=== PATIENT | male | born 1965 | race Caucasian/White ===

== ENCOUNTER 2017-10-21 12:01 | Emergency (ER) | payer OTHER ==
[~2017-10-21] VITALS: Ht 175.3 cm; Wt 114.2 kg
[2017-10-21] MEDS ORDERED: ONDANSETRON ODT 4 MG ONE (12:42)
[2017-10-21] MEDS ORDERED: KETOROLAC 30 MG/1 ML ONE (12:43)
[2017-10-21] MEDS ORDERED: MORPHINE SULFATE 4 MG/ML, 1ML ONE ×2 (12:43→14:30)
[2017-10-21] MEDS: MORPHINE SULFATE 4 MG/ML, 1ML IVPush PRN ×2 (12:57→14:35)
[2017-10-21] MEDS ORDERED: ONDANSETRON ODT 4 MG PO ONE (13:00)
[2017-10-21] MEDS ORDERED: KETOROLAC 30 MG/1 ML IVPush ONE (13:00)
[2017-10-21 13:24] LABS: MICROSCOPIC AUTO
[2017-10-21 13:28] LABS: CULTURE INDICATED? YES
[2017-10-21 15:15] VITALS: BP 138/93
== END 2017-10-21 15:18 | disposition home or self-care (01) ==
LOC: ED 13:00
DX: N13.2 Hydronephrosis with renal and ureteral calculous obstruction (principal); I10 Essential (primary) hypertension; Z79.899 Other long term (current) drug therapy
CPT/HCPCS: 74176; 81001; 87086; 96374; 96375; 96376; 99285; J1885; Q0162

== ENCOUNTER 2017-11-09 10:05 | Emergency (ER) | payer OTHER ==
[~2017-11-09] VITALS: Ht 175.3 cm; Wt 114.5 kg
[2017-11-09] MEDS ORDERED: ONDANSETRON ODT 4 MG PO ONE (11:30)
[2017-11-09] MEDS ORDERED: SODIUM CHLORIDE FLUSH 10ML SYR IVF ONE (11:30)
[2017-11-09] MEDS ORDERED: KETOROLAC 30 MG/1 ML IVPush ONE (11:30)
[2017-11-09 11:39] LABS: BASOPHILS # (AUTO) 0.03 x10^3/uL (0-0.1); BASOPHILS % (AUTO) 1 % (0-1); EOSINOPHILS # (AUTO) 0.03 x10^3/uL (0-0.4); EOSINOPHILS % (AUTO) 1 % (1-7); LYMPHOCYTES # (AUTO) 1.15 x10^3/uL (1-3.4); LYMPHOCYTES % (AUTO) 19 % (22-44); MD NO; MEAN CORPUSCULAR HEMOGLOBIN 30.3 pg (27.5-34.5); MEAN CORPUSCULAR VOLUME 91.7 fL (81-97); MONOCYTES # (AUTO) 0.46 x10^3/uL (0.2-0.8); MONOCYTES % (AUTO) 8 % (2-9); NEUTROPHILS # (AUTO) 4.31 x10^3/uL (1.8-6.8); NEUTROPHILS % (AUTO) 72 % (42-75); PLATELET COUNT 181 x10^3/uL (130-400); RED BLOOD COUNT 5.73 x10^6/uL (4.38-5.82); RED CELL DISTRIBUTION WIDTH 13.4 % (9.4-14.8)
[2017-11-09 11:50] LABS: ALBUMIN 4.3 g/dL (3.4-5.0); ANION GAP 7 mmol/L (5-15); CHLORIDE 104 mmol/L (98-107); CREATININE 1.08 mg/dL (0.7-1.3)
[2017-11-09] MEDS ORDERED: KETOROLAC 30 MG/1 ML ONE (11:56)
[2017-11-09] MEDS ORDERED: ONDANSETRON ODT 4 MG ONE (11:56)
[2017-11-09] MEDS ORDERED: TEST100V2 IM (12:01)
[2017-11-09 12:17] LABS: MICROSCOPIC AUTO
[2017-11-09 12:40] LABS: CULTURE INDICATED? NO
[2017-11-09 13:04] VITALS: BP 162/99
== END 2017-11-09 14:44 | disposition home or self-care (01) ==
LOC: ED 13:32
DX: N13.2 Hydronephrosis with renal and ureteral calculous obstruction (principal); R10.9 Unspecified abdominal pain; I10 Essential (primary) hypertension
CPT/HCPCS: 36415; 74018; 76770; 80048; 81001; 82040; 85025; 96374; 99285; J1885; Q0162

== ENCOUNTER 2018-06-22 01:44 | Emergency (ER) | payer OTHER ==
[~2018-06-22] VITALS: Ht 175.3 cm; Wt 110.8 kg
[~2018-06-22 01:44] MED LIST: TEST100V2 IM
[2018-06-22 03:59] VITALS: BP 177/102
== END 2018-06-22 04:01 | disposition home or self-care (01) ==
LOC: ED 01:56
DX: B34.9 Viral infection, unspecified (principal); I10 Essential (primary) hypertension
CPT/HCPCS: 71045; 93005; 99283

== ENCOUNTER 2018-10-31 18:24 | Emergency (ER) | payer OTHER ==
[~2018-10-31] VITALS: Ht 175.3 cm; Wt 114.8 kg
[2018-10-31] MEDS ORDERED: ASPIRIN 81 MG TABLET CHEW PO ONE (18:30)
[2018-10-31] MEDS ORDERED: SODIUM CHLORIDE FLUSH 10ML SYR IVF ONE (18:30)
[2018-10-31] MEDS ORDERED: ASPIRIN 81 MG TABLET CHEW ONE (18:43)
[2018-10-31] MEDS ORDERED: ADENOSINE 6 MG/2 ML ONE (18:43)
[2018-10-31] MEDS ORDERED: METOPROLOL TARTRATE 25 MG TABLET ONE (18:55)
--- NOTE | 2018-10-31 18:55 | NUR ---
ADENOSINE GIVEN WITH IMMEDIATE RATE DECREASED TO 105 FROM 167. PT TOLERATED PROCEDURE WELL.
[2018-10-31] MEDS ORDERED: METOPROLOL TARTRATE 50 MG TABLET PO ONE (19:00)
[2018-10-31] MEDS ORDERED: ADENOSINE 6 MG/2 ML IVPush ONE (19:00)
[2018-10-31] MEDS ORDERED: TORADOL PO (19:03)
[2018-10-31 19:19] LABS: BASOPHILS # (AUTO) 0.02 x10^3/uL (0-0.1); BASOPHILS % (AUTO) 1 % (0-1); EOSINOPHILS # (AUTO) 0.08 x10^3/uL (0-0.4); EOSINOPHILS % (AUTO) 2 % (1-7); LYMPHOCYTES # (AUTO) 1.35 x10^3/uL (1-3.4); LYMPHOCYTES % (AUTO) 31 % (22-44); MD NO; MEAN CORPUSCULAR HEMOGLOBIN 32.4 pg (27.5-34.5); MEAN CORPUSCULAR HGB CONC 34.7 g/dL (33.2-36.2); MEAN CORPUSCULAR VOLUME 93.3 fL (81-97); MEAN PLATELET VOLUME 9.5 fL (7.4-10.4); MONOCYTES # (AUTO) 0.83 x10^3/uL (0.2-0.8); MONOCYTES % (AUTO) 19 % (2-9); NEUTROPHILS # (AUTO) 2.11 x10^3/uL (1.8-6.8); NEUTROPHILS % (AUTO) 48 % (42-75); PLATELET COUNT 160 x10^3/uL (130-400); RED BLOOD COUNT 5.75 x10^6/uL (4.38-5.82); RED CELL DISTRIBUTION WIDTH 12.9 % (9.4-14.8)
[2018-10-31 19:29] LABS: ALBUMIN 4.3 g/dL (3.4-5.0); ANION GAP 7 mmol/L (5-15); CALCIUM 8.7 mg/dL (8.5-10.1); CHLORIDE 109 mmol/L (98-107)
[2018-10-31 19:35] LABS: CREATININE 1.21 mg/dL (0.7-1.3); TROPONIN I < 0.015 ng/mL (0.000-0.045)
--- NOTE | 2018-10-31 20:05 | NUR ---
ALL RESULTS BACK, PT FOR RECHECK.
[2018-10-31 20:16] VITALS: BP 136/101
== END 2018-10-31 20:31 | disposition home or self-care (01) ==
LOC: ED 20:25
DX: I47.1 Supraventricular tachycardia (principal); I21.A1 Myocardial infarction type 2; I10 Essential (primary) hypertension
CPT/HCPCS: 36415; 71045; 80048; 82040; 83880; 84484; 85025; 93005; 99284; J0153

== ENCOUNTER → 2019-11-07 | Outpatient (CLI) | payer OTHER ==
[~2019-11-07] MED LIST changes: +ASPI81TA45 PO; +ATOR-2 PO; +HYDROCHLOROTH12.5 MG PO; +LISI5TAB7 PO; +LOSA1TAB7 PO; +METO-93 PO; +NITR0.4T28 SL; +TICA90TA PO; +TORADOL PO
[2019-11-07 13:13] LABS: ALBUMIN 3.8 g/dL (3.4-5.0); ANION GAP 5 mmol/L (5-15); CALCIUM 9.3 mg/dL (8.5-10.1); CHLORIDE 106 mmol/L (98-107)
[2019-11-07 13:17] LABS: ALANINE AMINOTRANSFERASE 43 U/L (12-78); ALKALINE PHOSPHATASE 102 U/L (45-117); BILIRUBIN,TOTAL 0.7 mg/dL (0.2-1.0); CHOL/HDL RATIO 4.5; CHOLESTEROL, TOTAL 224 mg/dL (140-239); CREATININE 1.08 mg/dL (0.7-1.3); HDL CHOL % 22 % (26-37); HDL CHOLESTEROL (DIRECT) 50 mg/dL (40-60); TOTAL PROTEIN 7.6 g/dL (6.4-8.2); TRIGLYCERIDES 477 mg/dL (50-200)
== END | disposition home or self-care (01) ==
LOC: CFH 09:07
PROVIDERS: ATTEND Genetic Counselor, MS
DX: I10 Essential (primary) hypertension (principal)
CPT/HCPCS: 36415; 80053; 80061

== ENCOUNTER 2020-08-21 00:02 | Inpatient (IN) | payer OTHER ==
[~2020-08-21] VITALS: Ht 175.3 cm; Wt 120.0 kg
[2020-08-21] MEDS ORDERED: ASPIRIN 81 MG TABLET CHEW PO ONE (00:30)
--- NOTE | 2020-08-21 00:31 | NUR ---
PT BIB SELF VIA POV D/T CP THAT STARTED TWO DAYS AGO. PT TOOK 3 NITRO PILLS STEPHANIE BETWEEN 3P AND 7P, PT STATES THIS HELPED HIS PAIN A LITTLE BIT. PER PT RESTING RIGHT NOW HAS BROUGHT HIS PAIN FROM 4/10 TO 0/10. PT HAD 3 STENTS PUT IN APPROX 11 MONTHS AGO. PT RESTING IN [facility], MONITORING IN PLACE, NADN AT THIS TIME, EKG DONE IN TRIAGE, PER PT NO NEEDS AT THIS TIME, KELLY BRAXTON AT , [facility].
--- NOTE | 2020-08-21 00:39 | NUR ---
REPORT GIVEN TO KALE MONTES.
--- NOTE | 2020-08-21 00:40 | NUR ---
REPORT RECIEVED FROM SANJAY HENLEY
[2020-08-21] MEDS ORDERED: ASPIRIN 81 MG TABLET CHEW ONE (00:50)
[2020-08-21 00:53] LABS: BASOPHILS % (AUTO) 1 % (0-1); EOSINOPHILS % (AUTO) 2 % (1-7); LYMPHOCYTES % (AUTO) 27 % (22-44); MEAN CORPUSCULAR HEMOGLOBIN 32.5 pg (27.5-34.5); MEAN CORPUSCULAR HGB CONC 34.2 g/dL (33.2-36.2); MEAN PLATELET VOLUME 9.2 fL (7.4-10.4); MONOCYTES % (AUTO) 15 % (2-9); NEUTROPHILS % (AUTO) 55 % (42-75); PLATELET COUNT 154 x10^3/uL (130-400); RED BLOOD COUNT 4.42 x10^6/uL (4.38-5.82); RED CELL DISTRIBUTION WIDTH 13.2 % (9.4-14.8)
[2020-08-21 00:54] LABS: MD NO
[2020-08-21 00:58] LABS: ALBUMIN 3.8 g/dL (3.4-5.0); ANION GAP 10 mmol/L (5-15); CALCIUM 8.8 mg/dL (8.5-10.1); CHLORIDE 106 mmol/L (98-107); CREATININE 0.97 mg/dL (0.7-1.3)
[2020-08-21 01:01] LABS: TROPONIN I 0.052 ng/mL (0.000-0.045)
[2020-08-21] MEDS ORDERED: DOCUSATE 100 MG CAPSULE PO PRN (02:00)
[2020-08-21] MEDS ORDERED: NITROGLYCERIN 0.4 MG BOTTLE (25 TABS) SL PRN (02:00)
[2020-08-21] MEDS ORDERED: CLOP75TA PO (02:18)
--- NOTE | 2020-08-21 02:45 | NUR ---
report to edward abreu. waiting for room to be cleaned
[2020-08-21 03:48] VITALS: BP 133/91
[2020-08-21] MEDS ORDERED: LOSARTAN/HCTZ MC SCH (04:00)
[2020-08-21] MEDS ORDERED: LOSA1TAB25 PO (04:19)
[2020-08-21] MEDS: ASPIRIN 81 MG TABLET EC PO SCH (05:58)
[2020-08-21 07:20] LABS: TROPONIN I 0.165 ng/mL (0.000-0.045)
[2020-08-21 07:47] VITALS: BP 128/86
[2020-08-21] MEDS ORDERED: LISINOPRIL 5 MG TABLET PO SCH (09:00)
[2020-08-21 10:15] VITALS: BP 145/96
[2020-08-21] MEDS: METOPROLOL SUCCINATE 50 MG TAB.ER.24H PO SCH (10:17)
[2020-08-21] MEDS: LOSARTAN 100 MG TAB PO SCH (10:17)
[2020-08-21] MEDS: HYDROCHLOROTHIAZIDE 12.5 MG CAPSULE PO SCH (10:17)
[2020-08-21] MEDS: TICAGRELOR 90 MG TABLET PO SCH ×2 (10:17→10:20)
[2020-08-21] MEDS: SODIUM CHLORIDE FLUSH 10ML SYR IVF SCH ×2 (10:29→20:58)
[2020-08-21] MEDS: CLOPIDOGREL 75 MG TABLET PO SCH (10:34)
[2020-08-21] MEDS: SODIUM CHLORIDE 0.9% 1,000 ML IV SCH ×2 (11:34→22:08)
[2020-08-21] MEDS ORDERED: MIDAZOLAM 1 MG/ML, 5ML ONE (14:55)
[2020-08-21] MEDS ORDERED: LIDOCAINE-MPF 1%, 5ML ONE ×2 (14:55→16:45)
[2020-08-21] MEDS ORDERED: TICAGRELOR 90 MG TABLET ONE (14:55)
[2020-08-21] MEDS ORDERED: FENTANYL PF 100 MCG/2ML ONE (14:55)
[2020-08-21] MEDS ORDERED: BIVALIRUDIN 250 MG ONE ×2 (14:55→16:57)
[2020-08-21] MEDS ORDERED: HEPARIN 1,000 UNITS/ML, 10ML ONE (14:55)
[2020-08-21] MEDS ORDERED: VERAPAMIL 2.5 MG/ML, 2ML ONE (14:55)
[2020-08-21] MEDS ORDERED: DIPHENHYDRAMINE 50 MG/ML, 1ML ONE (16:50)
[2020-08-21] MEDS ORDERED: CLOPIDOGREL 75 MG TABLET ONE (17:27)
[2020-08-21] MEDS ORDERED: SODIUM CHLORIDE 0.9% 1,000 ML IV SCH (18:00)
[2020-08-21 20:03] VITALS: BP 98/67
[2020-08-21] MEDS ORDERED: ATORVASTATIN 80 MG TABLET PO SCH (21:00)
[2020-08-22 01:11] VITALS: BP 112/67
[2020-08-22 05:33] LABS: BASOPHILS % (AUTO) 1 % (0-1); EOSINOPHILS % (AUTO) 2 % (1-7); LYMPHOCYTES % (AUTO) 22 % (22-44); MEAN CORPUSCULAR HEMOGLOBIN 33.2 pg (27.5-34.5); MEAN CORPUSCULAR HGB CONC 35.4 g/dL (33.2-36.2); MEAN PLATELET VOLUME 9.3 fL (7.4-10.4); MONOCYTES % (AUTO) 13 % (2-9); NEUTROPHILS % (AUTO) 62 % (42-75); PLATELET COUNT 136 x10^3/uL (130-400); RED BLOOD COUNT 4.23 x10^6/uL (4.38-5.82); RED CELL DISTRIBUTION WIDTH 13.1 % (9.4-14.8)
[2020-08-22 05:38] LABS: MD NO
[2020-08-22 05:42] LABS: ANION GAP 7 mmol/L (5-15); CALCIUM 8.8 mg/dL (8.5-10.1); CHLORIDE 107 mmol/L (98-107); CREATININE 0.94 mg/dL (0.7-1.3)
[2020-08-22] MEDS: ASPIRIN 81 MG TABLET EC PO SCH (05:53)
[2020-08-22] MEDS: METOPROLOL SUCCINATE 50 MG TAB.ER.24H PO SCH (05:53)
[2020-08-22 07:39] VITALS: BP 117/80
[2020-08-22] MEDS: LOSARTAN 100 MG TAB PO SCH (09:43)
[2020-08-22] MEDS: CLOPIDOGREL 75 MG TABLET PO SCH (09:43)
[2020-08-22] MEDS: HYDROCHLOROTHIAZIDE 12.5 MG CAPSULE PO SCH (09:43)
[2020-08-22] MEDS: SODIUM CHLORIDE 0.9% 1,000 ML IV SCH (09:44)
[2020-08-22] MEDS: SODIUM CHLORIDE FLUSH 10ML SYR IVF SCH (09:44)
== END 2020-08-22 13:39 | disposition home or self-care (01) | DRG 246 ==
LOC: ED 01:27 → EDIP 01:39 → INTOOBSV 01:39 → OBSVTOIN 01:39 → 5SO 03:42 → INTOOBSV 11:49 → OBSVTOIN 11:49 → DCLOUNGE 08-22 13:26
PROVIDERS: ADMIT Family Medicine; ATTEND Hospitalist
PROC: 027034Z Dilation of Coronary Artery, One Artery with Drug-eluting Intraluminal Device, Percutaneous Approach (ICD-10-PCS; principal; 2020-08-21)
PROC: 4A023N7 Measurement of Cardiac Sampling and Pressure, Left Heart, Percutaneous Approach (ICD-10-PCS; 2020-08-21)
PROC: B2111ZZ Fluoroscopy of Multiple Coronary Arteries using Low Osmolar Contrast (ICD-10-PCS; 2020-08-21)
PROC: B2151ZZ Fluoroscopy of Left Heart using Low Osmolar Contrast (ICD-10-PCS; 2020-08-21)
DX: T82.855A Stenosis of coronary artery stent, initial encounter (principal); I21.4 Non-ST elevation (NSTEMI) myocardial infarction; I25.118 Atherosclerotic heart disease of native coronary artery with other forms of angina pectoris; I25.5 Ischemic cardiomyopathy; I10 Essential (primary) hypertension; E78.5 Hyperlipidemia, unspecified; Y84.0 Cardiac catheterization as the cause of abnormal reaction of the patient, or of later complication, without mention of misadventure at the time of the procedure; Z82.49 Family history of ischemic heart disease and other diseases of the circulatory system; Z87.442 Personal history of urinary calculi; Z87.891 Personal history of nicotine dependence; Y92.89 Other specified places as the place of occurrence of the external cause; Z79.899 Other long term (current) drug therapy
CPT/HCPCS: 36415; 71045; 80048; 82040; 84484; 85025; 85347; 93005; 93306; 93356; 99285; G0378; J0583; J1644; J2250; J3010; J1200; J7030